=== PATIENT | female | born 1990 | race Caucasian/White ===

== ENCOUNTER 2017-05-06 07:34 | Emergency (ER) | payer BC | END 2017-05-06 08:57 | disposition home or self-care (01) | LOC: FTE 07:34 | DX: J02.9 Acute pharyngitis, unspecified (principal) | CPT/HCPCS: 87880; 99283 ==

== ENCOUNTER 2017-05-29 05:02 | Emergency (ER) | payer BC | END 2017-05-29 08:38 | disposition home or self-care (01) | LOC: FTE 05:02 | DX: R05 Cough (principal) | CPT/HCPCS: 99283; Z7502 ==